=== PATIENT | female | born 1980 | race Caucasian/White ===

== ENCOUNTER 2017-10-26 21:55 | Emergency (ER) | payer OTHER ==
[~2017-10-26] VITALS: Ht 157.5 cm; Wt 99.8 kg
[2017-10-26 22:18] VITALS: BP 154/87
[2017-10-27] MEDS ORDERED: CHERATUSSIN AC118 M1 PO (00:17)
[2017-10-27] MEDS ORDERED: PREDNISONE50 M1 PO (00:17)
--- NOTE | 2017-10-27 00:17 | ED INFLUENZA/URI COMPLAINT ---
History of Present Illness General Chief Complaint: General Adult Stated Complaint: SOB,COUGHING,FEVER Source: patient Exam Limitations: no limitations Vital Signs & Intake/Output Vital Signs & Intake/Output Vital Signs Date Time Temp Pulse Resp B/P B/P Pulse O2 O2 Flow FiO2 Mean Ox Delivery Rate 10/26 2218 98.9 115 18 154/87 98 Room Air ED Intake and Output 10/27 0000 10/26 1200 Intake Total Output Total Balance Patient 220 lb Weight Weight Estimated Measurement Method Allergies Coded Allergies: NO KNOWN ALLERGIES (07/07/11) Reconcile Medications Codeine Phosphate/Guaifenesi (Cheratussin AC Syrup) 10 MG-100 MG/5 ML LIQUID 5 -10 ML PO Q6P PRN COUGH Prednisone 50 MG TABLET 1 TAB PO DAILY bronchitis Triage Note: RECEIVED 37 YO FEMALE C/O NON PRODUCTIVE COUGH, STARTED FRIDAY NIGHT, MUCH WORSE LAST NIGHT. PT WAS SEEN AT A WALK IN THIS AM AND PRESCRIBED DOXY, INHALERS AND COUGH MEDS. SOMETHING MADE HER JITTERY AND SHE STARTED RUNNING A FEVER TONITE. TEMP 98.9 IN TRIAGE. QUIT SMOKING ONE WEEK AGO. Triage Nurses Notes Reviewed? yes Onset: Abrupt Duration: day(s):, constant, continues in ED Timing: recent history Severity: moderate, severe No Modifying Factors: none : No Patient currently breastfeeds: No HPI: 37-year-old female comes into the emergency room for further evaluation of cough. Patient reports that she's been coughing for a few days now. Denies any shortness of breath. Some associated pain in chest with cough. She also reports that she's been running a fever at home. She went to the urgent care center today was prescribed cough medicine and doxycycline. She reports that the medicine that she was given dilated her pupils. She denies any chest pain other than when she has the cough she feels soreness in her ribs. She denies any shortness of breath. She reports that used albuterol pump prior to coming in which is made her jittery. (Alberto Avila) Past History Travel History Traveled to [place] past 21 day No Medical History Any Pertinent Medical History? see below for history Neurological: NONE EENT: NONE Cardiovascular: NONE Respiratory: NONE Gastrointestinal: NONE Hepatic: NONE Renal: NONE Musculoskeletal: NONE Psychiatric: NONE Endocrine: NONE Blood Disorders: NONE Cancer(s): NONE Surgical History Surgical History: non-contributory Psychosocial History What is your primary language Citizen [place] Tobacco Use: Quit <30 days ago Family History Hx Contributory? No (Alberto Avila) Review of Systems Review of Systems Constitutional: Reports: see HPI. EENTM: Reports: no symptoms. Respiratory: Reports: see HPI. Cardiovascular: Reports: no symptoms. GI: Reports: no symptoms. Genitourinary: Reports: no symptoms. Musculoskeletal: Reports: no symptoms. Skin: Reports: no symptoms. Neurological/Psychological: Reports: no symptoms. Hematologic/Endocrine: Reports: no symptoms. Immunologic/Allergic: Reports: no symptoms. All Other Systems: Reviewed and Negative (Alberto Avila) Physical Exam Physical Exam General Appearance: well developed/nourished, alert, awake Head: atraumatic Eyes: Bilateral: normal appearance. Ears, Nose, Throat: moist mucous membrane, hearing grossly normal Neck: normal inspection Respiratory: no respiratory distress, decreased breath sounds, wheezing Cardiovascular: regular rate/rhythm, tachycardia Back: normal inspection Extremities: normal range of motion Neurologic/Psych: awake, alert, oriented x 3 Skin: intact, normal color Core Measures Sepsis Present: No Sepsis Focused Exam Completed? No (Alberto Avila) Progress Differential Diagnosis: influenza, pneumonia, pharyngitis, sinusitis, bronchitis , pe Plan of Care: Orders Procedure Date/time Status URINE 10/27 2307 Complete EKG 10/26 2157 Active Laboratory Tests 10/26/17 2311: Urine Test NEGATIVE Initial ED EKG: none Comments: 10/27/2017 12:42:30 AM Patient clinically looks well. Patient is no apparent distress. Symptoms are most consistent with bronchitis. Patient needs follow-up with primary care doctor. Treated symptomatically. Switched to different cough medicine. She understands and agrees a plan of care. No suspicion for pulmonary embolism. Patient is ready being covered for community-acquired pneumonia. Do not feel x- ray is necessary at this time. Symptoms are most consistent with viral illness. (Alberto Avila) Departure Departure Disposition: HOME OR SELF CARE Condition: Stable Clinical Impression Primary Impression: Bronchitis Referrals: [facility] (PCP/Family) Additional Instructions: Take prednisone and Robitussin with codeine as prescribed. Resume taking doxycycline. Use albuterol pump at home. Return immediately if any other concerns worsening symptoms. Please go over all results of today's visit with your primary care doctor. Contact your primary care doctor to let them know you were here in the emergency room. There may be nonspecific findings which may not be related to your visit today here in the emergency room but may require further evaluation and chronic monitoring by your primary care doctor. If you had a laceration today the chance of foreign body always remains. You should follow-up with your primary care doctor for recheck in 3-5 days for a wound check. If you had an x-ray done there is a chance that a fracture could have been missed on initial read and you should follow-up with your primary care doctor for repeat x-rays if symptoms persist. If your blood pressure was elevated here in the emergency room please have rechecked by doris primary care doctor within the next 48. If you were prescribed a narcotic here in the emergency room or any type of controlled substances you're not allowed to drive while taking this medication or operate any type of heavy machinery. Narcotics can make you feel lightheaded dizziness nausea and can cause constipation. You may need to picker tender a stool softener. Thank you for choosing [facility] emergency room. Please return to the emergency room immediately if you have any other concerns worsening of symptoms. Departure Forms: Customer Survey General Discharge Information Prescriptions: Current Visit Scripts Prednisone 1 TAB PO DAILY #5 TAB Codeine Phosphate/Guaifenesi (Cheratussin AC Syrup) 5-10 ML PO Q6P PRN COUGH #100 ML (Alberto Avila) PA/ROAD PASSENGER FIRER Co-Sign Statement Statement: ED Attending supervision documentation- [] I saw and evaluated the patient. I have also reviewed all the pertinent lab results and diagnostic results. I agree with the findings and the plan of care as documented in the PA's/ROAD PASSENGER FIRER's documentation. [x] I have reviewed the ED Record and agree with the PA's/ROAD PASSENGER FIRER's documentation. [] Additions or exceptions (if any) to the PAs/ROAD PASSENGER FIRER's note and plan are summarized below: [] (Kishor [facility],[place])
[2017-10-28] MEDS ORDERED: CHERATUSSIN AC118 M1 PO (20:52)
== END 2017-10-27 00:28 ==
LOC: ERH 21:55
DX: J40 Bronchitis, not specified as acute or chronic (principal)
CPT/HCPCS: 1263; 81025; 93005; 93010

== ENCOUNTER 2017-10-28 18:38 | Emergency (ER) | payer OTHER ==
[~2017-10-28] VITALS: Ht 160 cm; Wt 97.5 kg
[~2017-10-28 18:38] MED LIST: CHERATUSSIN AC118 M1 PO; PREDNISONE50 M1 PO
[2017-10-28 19:46] LABS: ABSOLUTE BASOPHIL COUNT 0 /CUMM (0.0-0.2); ABSOLUTE EOSINOPHIL COUNT 0 /CUMM (0.0-0.7); ABSOLUTE GRANULOCYTE CT 4.4 /CUMM (1.4-6.5); ABSOLUTE LYMPH COUNT 1.2 /CUMM (1.2-3.4); ABSOLUTE MONOCYTE COUNT 0.3 /CUMM (0.10-0.60); BASOPHIL % 0 % (0.0-2.0); EOSINOPHIL % 0 % (0-5); GRANULOCYTE % 74.2 % (42.2-75.2); HEMATOCRIT 37.8 % (37-47); MEAN CORPUSCULAR HGB 30.8 PG (27.0-31.0); MEAN CORPUSCULAR VOLUME 90.7 FL (81.0-99.0); MEAN PLATELET VOLUME 8.4 FL (7.4-10.4); PLATELET COUNT 363 /CUMM (130-400); RBC DISTRIBUTION WIDTH 13.2 % (11.5-14.5); RED BLOOD CELL CT 4.17 /CUMM (4.20-5.40); WHITE BLOOD CELL COUNT 5.9 /CUMM (4.8-10.8)
--- NOTE | 2017-10-28 20:23 | RADIOLOGY REPORT ---
EXAMINATION: CHEST 2 VIEWS CLINICAL INFORMATION: Short of breath. COMPARISON: 11/01/2007. TECHNIQUE: PA and lateral views of the chest obtained. FINDINGS: Lungs are well expanded. Focal airspace disease is now seen within the left lingula partially obscuring the left heart border. Early left lingular infiltrate would be suspected. No significant effusion, edema, or pneumothorax. Cardiac mediastinal silhouettes within normal limits for size. No acute bony abnormality. IMPRESSION: Subtle focal airspace disease in the left lingula. In the acute setting infectious etiology would be favored.
--- NOTE | 2017-10-28 20:26 | ED DYSPNEA/ASTHMA COMPLAINT ---
History of Present Illness General Chief Complaint: General Adult Stated Complaint: COUGHING WAS SEEN ON SUN NO RELIEF (BLOOD) Source: patient, family, old records Exam Limitations: no limitations Vital Signs & Intake/Output Vital Signs & Intake/Output Vital Signs Date Time Temp Pulse Resp B/P B/P Pulse O2 O2 Flow FiO2 Mean Ox Delivery Rate 10/289 98.5 102 18 131/91 98 Room Air Allergies Coded Allergies: NO KNOWN ALLERGIES (07/07/11) Reconcile Medications Codeine Phosphate/Guaifenesi (Cheratussin AC Syrup) 10 MG-100 MG/5 ML LIQUID 5 -10 ML PO Q6P PRN COUGH Prednisone 50 MG TABLET 1 TAB PO DAILY bronchitis Triage Note: RECEIVED 37 YO FEMALE SEEN HERE FRIDAY NIGHT FOR NON PRODUCTIVE COUGH AND CHEST WALL PAIN WITH COUGHING ONLY. PT INSTRUCTED TO RETURN TO THE ED IF NOT ANY BETTER. PT REPORTS SHE IS NOW BRINGING UP TINY PIECES OF BLOOD WHEN COUGHING. PT ALSO REPORTS PAIN TO BACK OF NECK. O2 SATS 98% RESPIRATIONS UNLABORED AND EVEN Triage Nurses Notes Reviewed? yes : No Patient currently breastfeeds: No HPI: Patient return to the emergency department with continued cough. Now the cough is turning productive and she is beginning to see streaks of blood in it. Patient states the cough is worse when she is laying down. She denies any chest pain or chest tightness. Patient hasn't been taking her antibiotics, steroids and using her inhaler. Patient has also been taking cough medicine with codeine but she only has one dose left. Patient denies any fevers or chills. There is no nausea or vomiting. Patient recently quit smoking. Past History Travel History Traveled to [place] past 21 day No Medical History Any Pertinent Medical History? none Neurological: NONE EENT: NONE Cardiovascular: NONE Respiratory: NONE Gastrointestinal: NONE Hepatic: NONE Renal: NONE Musculoskeletal: NONE Psychiatric: NONE Endocrine: NONE Blood Disorders: NONE Cancer(s): NONE Surgical History Surgical History: non-contributory Psychosocial History What is your primary language [place] Tobacco Use: Quit <30 days ago ETOH Use: occasional use Illicit Drug Use: denies illicit drug use Family History Hx Contributory? No Review of Systems Review of Systems Constitutional: Reports: no symptoms. EENTM: Reports: no symptoms. Respiratory: Reports: see HPI, cough, hemoptysis, sputum production. Cardiovascular: Reports: no symptoms. GI: Reports: no symptoms. Genitourinary: Reports: no symptoms. Musculoskeletal: Reports: no symptoms. Skin: Reports: no symptoms. Neurological/Psychological: Reports: no symptoms. Hematologic/Endocrine: Reports: no symptoms. Immunologic/Allergic: Reports: no symptoms. All Other Systems: Reviewed and Negative Physical Exam Physical Exam General Appearance: well developed/nourished, alert, awake, anxious, mild distress Head: atraumatic, normal appearance Eyes: Bilateral: PERRL, EOMI. Ears, Nose, Throat: normal pharynx, normal ENT inspection, hearing grossly normal Neck: normal inspection, supple, full range of motion Respiratory: normal breath sounds, chest non-tender, no respiratory distress, lungs clear, there is a slight expiratory wheeze with coughing however her lungs are clear to auscultation bilaterally with good air entry when she is not coughing. Cardiovascular: regular rate/rhythm, normal peripheral pulses Gastrointestinal: normal bowel sounds, soft, non-tender, no organomegaly Extremities: normal inspection, normal capillary refill, normal range of motion, no edema Neurologic/Psych: no motor/sensory deficits, awake, alert, oriented x 3, normal gait, normal mood/affect Skin: intact, normal color, warm/dry Lymphatic: no anterior cervical allison Core Measures ACS in differential dx? No CVA/TIA Diagnosis No Sepsis Present: No Sepsis Focused Exam Completed? No All Positive = PERC Ruled Out: Positive: age < 50 years, O2 sat > 94%, no hormone use, no prior DVT or PE, no unilateral leg swellin, no surgery/trauma w/in 4w. Negative: heart rate < 100 bpm, no hemoptysis. Wells Criteria Score: 2.5 Progress Differential Diagnosis: asthma, bronchitis, CHF, COPD, pulmonary embolism, pneumonia Plan of Care: Orders Procedure Date/time Status HUMAN BETA HCG SCREEN 10/29 1927 Complete TROPONIN LEVEL 10/28 1848 Complete D-DIMER 10/28 1848 Complete COMPREHENSIVE METABOLIC PANEL 10/28 1848 Complete CBC WITHOUT DIFFERENTIAL 10/28 1848 Complete EKG 10/28 1848 Active Laboratory Tests 10/28/171927: Anion Gap 12, Estimated GFR > 60, BUN/Creatinine Ratio 22.0, Glucose 130 H, Calcium 9.3, Total Bilirubin 0.4, AST 23, ALT 37, Alkaline Phosphatase 75, Troponin I < 0.01, Total Protein 7.0, Albumin 4.2, Globulin 2.8, Albumin/ Globulin Ratio 1.5, Total Beta HCG NEGATIVE, D-Dimer High Sensitivty 203, CBC w Diff NO MAN DIFF REQ, RBC 4.17 L, MCV 90.7, MCH 30.8, MCHC 34.0, RDW 13.2, MPV 8.4, Gran % 74.2, Lymphocytes % 20.1 L, Monocytes % 5.7, Eosinophils % 0, Basophils % 0, Absolute Granulocytes 4.4, Absolute Lymphocytes 1.2, Absolute Monocytes 0.3, Absolute Eosinophils 0, Absolute Basophils 0 10/28/17 1906: Total Beta HCG Cancelled Diagnostic Imaging: Viewed by Me: Radiology Read. Discussed w/RAD: Radiology Read. CXR Impression: PATIENT: KIMANI KOCH PRESENT AGE: 37 PATIENT ACCOUNT NO: [id number] : 80 LOCATION: [facility] ORDERING PHYSICIAN: Sebastian Alejandra DO SERVICE DATE: 10/28/17 EXAM TYPE: RAD - XRY-CHEST XRAY, TWO VIEWS EXAMINATION: CHEST 2 VIEWS CLINICAL INFORMATION: Short of breath. COMPARISON: 11/01/2007. TECHNIQUE: PA and lateral views of the chest obtained. FINDINGS: Lungs are well expanded. Focal airspace disease is now seen within the left lingula partially obscuring the left heart border. Early left lingular infiltrate would be suspected. No significant effusion, edema, or pneumothorax. Cardiac mediastinal silhouettes within normal limits for size. No acute bony abnormality. IMPRESSION: Subtle focal airspace disease in the left lingula. In the acute setting infectious etiology would be favored. DICTATED BY: Julian Carrero MD DATE/TIME DICTATED:10/28/172017 MANAGER AUDIT: JESSICA DATE/TIME TRANSCRIBED:10/28/172017 CONFIDENTIAL, DO NOT COPY WITHOUT APPROPRIATE AUTHORIZATION. <Electronically signed in Other Vendor System> SIGNED BY: Julian Carrero MD 10/28/172022 Initial ED EKG: none Departure Departure Disposition: HOME OR SELF CARE Condition: Stable Clinical Impression Primary Impression: Pneumonia Qualifiers: Pneumonia type: due to unspecified organism Laterality: left Lung location: lower lobe of lung Qualified Code: J18.1 - Lobar pneumonia, unspecified organism Referrals: Jean Rock MD (PCP/Family) Additional Instructions: contiue the antibiotics use your inhlaer just before bed take the cough medicine as needed. it has codeine so do not drive after taking it return for any concerns Departure Forms: Customer Survey General Discharge Information Prescriptions: Current Visit Scripts Codeine Phosphate/Guaifenesi (Cheratussin AC Syrup) 5-10 ML PO Q6P PRN COUGH #100 ML Critical Care Note Critical Care Note Critical Care Time: non-applicable
[2017-10-28] MEDS ORDERED: CHERATUSSIN AC118 M1 PO (20:52)
[2017-10-28 21:04] VITALS: BP 123/87
== END 2017-10-28 21:05 ==
LOC: ERH 18:38
PROVIDERS: Emergency Medicine
DX: J18.9 Pneumonia, unspecified organism (principal)
CPT/HCPCS: 1263; 71046; 93005; 93010